=== PATIENT | female | born 1970 | race Caucasian/White ===

== ENCOUNTER 2017-01-30 11:57 | Emergency (ER) | payer BC ==
[~2017-01-30] VITALS: Ht 172.7 cm; Wt 125.9 kg
[~2017-01-30 11:57] MED LIST: ALBUTEROL SULF8.5 GM IH; AZITHROMYCIN250 MG1 PO; BUSPIRONE HCL15 MG PO; CYMBALTA60 MG PO; GUAIFENESIN WI120 ML PO; RISPERDAL1 MG PO; TAMIFLU75 MG PO; ULTRAM50 MG PO
[2017-01-30 13:10] LABS: CHLORIDE 105 mEq/L (99-109); POTASSIUM 3.8 mEq/L (3.7-5.4)
[2017-01-30 13:11] LABS: SODIUM 139 mEq/L (136-147)
[2017-01-30 13:13] LABS: GLUCOSE 93 mg/dL (70-99)
[2017-01-30 13:14] LABS: ANION GAP 11 MEQ/L (2-14)
[2017-01-30 13:15] LABS: TOTAL BILIRUBIN 0.9 mg/dL (0.0-1.0)
[2017-01-30 13:16] LABS: ALKALINE PHOSPHATASE 59 IU/L (3-129); GFR ESTIMATE (CALCULATED) 51 mL/min/
[2017-01-30 13:18] LABS: UREA NITROGEN (BUN) 19 mg/dL (9-23)
[2017-01-30] MEDS ORDERED: LIDOCAINE20 MG/1 M5 PO (14:39)
[2017-01-30] MEDS ORDERED: ZOFRAN ODT8 MG PO (14:39)
[2017-01-30 15:01] VITALS: BP 138/119
== END 2017-01-30 15:02 | disposition home or self-care (01) ==
LOC: EME 11:57
PROVIDERS: Physician Assistant
DX: R13.10 Dysphagia, unspecified (principal); R11.10 Vomiting, unspecified; Z85.01 Personal history of malignant neoplasm of esophagus; I10 Essential (primary) hypertension; Z87.891 Personal history of nicotine dependence
CPT/HCPCS: 70360; 80053; 99281; 99284

== ENCOUNTER 2017-02-09 09:52 | Emergency (ER) | payer BC ==
[~2017-02-09] VITALS: Ht 172.7 cm; Wt 123.9 kg
[~2017-02-09 09:52] MED LIST changes: +LIDOCAINE20 MG/1 M5 PO; +ZOFRAN ODT8 MG PO
[2017-02-09] MEDS ORDERED: BLOOD PRESSURE MED PO (11:01)
[2017-02-09 11:24] LABS: BASOPHIL COUNT 0.1 K/uL (0-0.1); EOSINOPHIL COUNT 0.1 K/uL (0-0.3); HEMATOCRIT 42.9 % (36.0-46.0); IMMATURE GRANULOCYTE (%) 0.3 % (0.0-0.7); INSTRUMENT ABS NEUTROPHIL CT 5.5 K/uL; LYMPHOCYTE COUNT 0.5 K/uL (1.0-2.8); MCH 29.8 PG (29.0-34.0); MCHC 33.8 G/DL (30.0-36.0); MCV 88.1 FL (83-99); MEAN PLAT.VOLUME 9.1 uM^3 (9.5-12.4); MONOCYTE (%) 5.2 % (3-12); MONOCYTE COUNT 0.3 K/uL (0-0.8); NEUTROPHIL (%) 83.5 % (45-76); NEUTROPHIL COUNT 5.5 K/uL (1.8-6.4); PLATELET COUNT 248 K/uL (156-360); RBC DIS.WIDTH-CV 12.2 % (11.8-14.6); RBC DIS.WIDTH-SD 39.1 % (39-53); RED BLOOD COUNT 4.87 M/uL (3.80-5.20); WHITE BLOOD COUNT 6.6 K/uL (4.1-10.2)
[2017-02-09 11:35] LABS: CHLORIDE 103 mEq/L (99-109); POTASSIUM 4.5 mEq/L (3.7-5.4); SODIUM 140 mEq/L (136-147)
[2017-02-09 11:37] LABS: GLUCOSE 103 mg/dL (70-99)
[2017-02-09 11:38] LABS: ANION GAP 9 MEQ/L (2-14)
[2017-02-09 11:40] LABS: GFR ESTIMATE (CALCULATED) 57 mL/min/
[2017-02-09 11:41] LABS: UREA NITROGEN (BUN) 14 mg/dL (9-23)
[2017-02-09] MEDS ORDERED: ZITHROMAX Z-PA250 MG PO (13:24)
[2017-02-09 13:39] VITALS: BP 125/81
== END 2017-02-09 13:40 | disposition home or self-care (01) ==
LOC: EME 09:52
PROVIDERS: Emergency Medicine
DX: J04.0 Acute laryngitis (principal); J02.9 Acute pharyngitis, unspecified; R13.10 Dysphagia, unspecified; Z85.01 Personal history of malignant neoplasm of esophagus; F41.9 Anxiety disorder, unspecified; I10 Essential (primary) hypertension; F32.9 Major depressive disorder, single episode, unspecified; Z87.891 Personal history of nicotine dependence; Z85.21 Personal history of malignant neoplasm of larynx
CPT/HCPCS: 70491; 80048; 85025; 99281; 99285; J7030

== ENCOUNTER → 2017-10-01 | Outpatient (CLI) | payer BC ==
[~2017-10-01] MED LIST changes: +BLOOD PRESSURE MED PO; +ZITHROMAX Z-PA250 MG PO
== END | disposition home or self-care (01) ==
LOC: CDC 12:18
DX: M79.642 Pain in left hand (principal); M79.645 Pain in left finger(s); M79.641 Pain in right hand; G56.23 Lesion of ulnar nerve, bilateral upper limbs; G56.03 Carpal tunnel syndrome, bilateral upper limbs
CPT/HCPCS: 93000

== ENCOUNTER 2017-11-03 10:33 | Day surgery (SDC) | payer BC ==
[~2017-11-03] VITALS: Ht 172.7 cm; Wt 126.1 kg
[~2017-11-03 10:33] MED LIST changes: +ACID REDUCER 1150 MG PO; +MUCINEX600 MG PO; +NEURONTIN100 MG PO; +NEXIUM40 MG PO; +OMEPRAZOLE40 M1 PO; +VITAMIN D31000 UNIT PO
[2017-11-03 11:30] VITALS: BP 126/82
[2017-11-03 14:57] VITALS: BP 143/80
[2017-11-03 15:34] VITALS: BP 132/88
== END 2017-11-03 15:43 | disposition home or self-care (01) ==
LOC: SDC 10:33
DX: G56.01 Carpal tunnel syndrome, right upper limb (principal); G56.21 Lesion of ulnar nerve, right upper limb; K21.9 Gastro-esophageal reflux disease without esophagitis; Z85.21 Personal history of malignant neoplasm of larynx; Z87.891 Personal history of nicotine dependence; Z92.3 Personal history of irradiation
CPT/HCPCS: J0690; J2250; J2405; J3010; S0020

== ENCOUNTER 2017-12-01 10:48 | Day surgery (SDC) | payer BC ==
[~2017-12-01] VITALS: Ht 175.3 cm; Wt 123.8 kg
[~2017-12-01 10:48] MED LIST changes: +PERCOCET 5/31 TABLET PO
[2017-12-01 11:32] VITALS: BP 128/72
[2017-12-01 14:50] VITALS: BP 156/75
[2017-12-01 15:41] VITALS: BP 157/72
== END 2017-12-01 15:45 | disposition home or self-care (01) ==
LOC: SDC 10:48
DX: G56.02 Carpal tunnel syndrome, left upper limb (principal); G56.22 Lesion of ulnar nerve, left upper limb; Z88.1 Allergy status to other antibiotic agents; Z85.818 Personal history of malignant neoplasm of other sites of lip, oral cavity, and pharynx
CPT/HCPCS: J0131; J0690; J1100; J1170; J2250; J2405; J3010; Q0175; S0020